=== PATIENT | female | born 1940 | race Caucasian/White ===

== ENCOUNTER 2022-05-15 13:54 | Outpatient (RCR) | payer MEDICARE, SELFPAY | END 2022-06-11 11:54 | disposition home or self-care (01) | LOC: HO.WCC 13:54 | PROVIDERS: PCP Nurse Practitioner Adult Health; Visit Provider Surgery | DX: S81.802D Unspecified open wound, left lower leg, subsequent encounter (principal); L88 Pyoderma gangrenosum; G71.09 Other specified muscular dystrophies; I73.9 Peripheral vascular disease, unspecified; E63.9 Nutritional deficiency, unspecified; R13.10 Dysphagia, unspecified; Z99.3 Dependence on wheelchair; R60.0 Localized edema | CPT/HCPCS: 99213; 99214 ==